=== PATIENT | female | born 1970 | race African-American/Black ===

== ENCOUNTER 2018-01-11 13:01 | Emergency (ER) | payer MEDICAID, OTHER ==
[~2018-01-11] VITALS: Ht 167.6 cm; Wt 75.0 kg
[2018-01-11 16:12] LABS: BASOPHILS % 0.3 % (0.0-2.0); EOSINOPHILS % 1.2 % (0.0-5.0); HEMATOCRIT. 40.1 % (36.0-48.0); HEMOGLOBIN. 13.7 g/dL (12.0-16.0); MEAN CORPUSCULAR HEMOGLOBIN 29.9 pg (28.0-32.0); MEAN CORPUSCULAR VOLUME 87.8 fL (81.0-99.0); MEAN PLATELET VOLUME 7.4 fl (7.4-10.4); NEUTROPHILS % 61.5 % (40.0-76.0); PLATELET 250 x1000/uL (130-400); RED BLOOD CELL COUNT 4.57 mill/uL (4.2-5.4); RED CELL DISTRIBUTION WIDTH 13.2 % (11.6-14.6)
[2018-01-11 16:14] LABS: CHLORIDE 106 mEq/L (98-107)
[2018-01-11 16:24] LABS: ETHANOL BLOOD < 10 mg/dL
[2018-01-11] MEDS ORDERED: TETRACAINE 0.5% OPHTH DROPS 4ML OP NR (17:00)
[2018-01-11] MEDS ORDERED: FLUORESCEIN SODIUM 1MG/STRIP OP NR (17:00)
[2018-01-11] MEDS ORDERED: HYDROCODONE/APAP 7.5/325MG 1 TAB TABLET PO NR (17:00)
[2018-01-11 19:11] LABS: CLARITY URINE CLEAR (CLEAR); COLOR URINE YELLOW (YELLOW); KETONES URINE NEGATIVE (NEGATIVE); LEUKOCYTE ESTERASE URINE 2+ (NEGATIVE); NITRITE URINE NEGATIVE (NEGATIVE); OCCULT BLOOD URINE NEGATIVE (NEGATIVE); PH URINE 6.5 (4.5-8.0); PROTEIN URINE NEGATIVE (NEGATIVE); SPECIFIC GRAVITY URINE 1.029 (1.005-1.030)
[2018-01-11 19:35] LABS: *AMPHETAMINES SCREEN URINE NEGATIVE (NEGATIVE); *BARBITURATES SCREEN URINE NEGATIVE (NEGATIVE); *BENZODIAZEPINES SCREEN URINE NEGATIVE (NEGATIVE); CANNABINOID URINE SCREEN NEGATIVE (NEGATIVE); METHADONE URINE SCREEN NEGATIVE (NEGATIVE); OPIATES URINE SCREEN NEGATIVE (NEGATIVE); PHENCYCLIDINE URINE SCREEN NEGATIVE (NEGATIVE)
[2018-01-11 19:39] LABS: *COCAINE SCREEN URINE PRESUMTIVE POSITIVE (NEGATIVE)
[2018-01-11] MEDS ORDERED: LIDOCAINE HCL/PF 1% 10 MG/ML 5ML VIAL IJ NR (20:45)
[2018-01-11] MEDS ORDERED: CEFTRIAXONE SODIUM 1 G/VIAL IM NR (20:45)
[2018-01-11] MEDS ORDERED: IBUPROFEN 600MG TABLET PO NR (20:45)
[2018-01-11 22:25] VITALS: BP 124/88
== END 2018-01-11 22:53 | disposition home or self-care (01) ==
LOC: ER 13:26
DX: F99 Mental disorder, not otherwise specified (principal); S02.32XA Fracture of orbital floor, left side, initial encounter for closed fracture; S20.219A Contusion of unspecified front wall of thorax, initial encounter; S05.12XA Contusion of eyeball and orbital tissues, left eye, initial encounter; H11.32 Conjunctival hemorrhage, left eye; N39.0 Urinary tract infection, site not specified; F14.10 Cocaine abuse, uncomplicated; Y04.0XXA Assault by unarmed brawl or fight, initial encounter; Y93.89 Activity, other specified; Y92.89 Other specified places as the place of occurrence of the external cause; Z59.0 Homelessness
CPT/HCPCS: 36415; 70450; 70486; 71111; 72125; 80053; 80305; 80307; 80329; 81001; 81025; 84484; 85025; 87077; 87086; 87186; 93005; 96372; 99285; G0482; J0696; J3490